=== PATIENT | female | born 1945 | race Caucasian/White ===

== ENCOUNTER 2020-07-25 09:52 | Outpatient (CLI) | payer MEDICARE, SELFPAY ==
--- NOTE | 2020-07-25 10:12 | XR_ITS ---
WS: [id number] CERVICAL SPINE TECHNIQUE: 3 views of the cervical spine CLINICAL INFORMATION: CHRONIC NECK PAIN COMPARISON: None. FINDINGS: Osteopenia. Normal C1-C2 articulation. Mild cervical curve convex left. Mild spondylitic changes with moderate facet arthropathy. Calcific granulomas in the left upper lobe. XR/XR cervical spine 3V* [id number] IMPRESSION: 1. Mild spondylitic changes cervical spine. Cervical curve convex left. 2. Moderate facet arthropathy throughout cervical spine.
== END 2020-07-25 09:53 | disposition home or self-care (01) ==
PROVIDERS: Visit Provider Pediatrics
DX: M54.2 Cervicalgia (principal); G89.29 Other chronic pain; M47.812 Spondylosis without myelopathy or radiculopathy, cervical region
CPT/HCPCS: 72040